=== PATIENT | female | born 1975 | race African-American/Black ===

== ENCOUNTER 2020-09-13 17:53 | Emergency (ER) | payer OTHER ==
[~2020-09-13] VITALS: Ht 160 cm; Wt 95.3 kg
[2020-09-13 20:15] VITALS: BP 131/87
== END 2020-09-13 20:44 | disposition home or self-care (01) ==
LOC: ER 17:53
DX: T78.40XA Allergy, unspecified, initial encounter (principal); I10 Essential (primary) hypertension